=== PATIENT | male | born 1995 | race Native Hawaiian/Other Pacific Islander ===

== ENCOUNTER 2016-11-07 15:38 | Emergency (ER) | payer MEDICAID, OTHER ==
[~2016-11-07] VITALS: Ht 172.7 cm; Wt 78.3 kg
[~2016-11-07 15:38] MED LIST: ZITH250T PO
[2016-11-07 15:45] VITALS: BP 129/68; PULSE 67; RESP 18; TEMP 98.1; O2SAT 98
[2016-11-07] MEDS ORDERED: TETANUS/DIPHTHERIA TOXOID ADULT 0.5 ML VIAL IM ONE (16:00)
--- NOTE | 2016-11-07 16:04 | PD ---
HPI Chief Complaint: Laceration/Skin Injury Time Seen by Provider: 15:59 Travel History International Travel<30 days: No Contact w/Intl Traveler<30days: No Traveled to known affect area: No History of Present Illness HPI 21-year-old male presents to the emergency department for evaluation of left hand third finger abrasion. Patient states that he was hammering a nail into a wall outside when his hand slipped and he accidentally poked himself with the michelle nail in his left hand third finger. States it is a very small abrasion in that he only has a little bit of soreness in the area when he squeezes it. Denies any fever, chills, nausea, vomiting, numbness or tingling, weakness, decreased range of motion. Patient states his last tetanus vaccination was 8 years ago. No other complaints. [facility] Past Medical History Immunizations Current: Yes Social History Alcohol Use: No Tobacco Use: No Substance Use: No Allergies-Medications (Allergen,Severity, Reaction): Coded Allergies: Penicillin (Verified Allergy, Unknown, UNKNOWN, 11/07/16) Reported Meds & Prescriptions Reported Meds & Active Scripts Active Zithromax Z-Ernst (Azithromycin) 250 Mg Tab 250 Mg PO DIRECTED 5 Days 500 MG (2 TABLETS) PO ON DAY 1, THEN 250 MG (1 TABLET) PO ON DAYS 2 TO 5. Review of Systems Except as stated in HPI: all other systems reviewed are Neg Physical Exam Narrative GENERAL: Well-nourished and well-developed pleasant male patient in no acute distress who is nontoxic appearing. SKIN: Warm and dry. HEAD: Normocephalic and atraumatic. EYES: No injection, drainage, or hyphema noted. PERRLA. EOMI. ENT: No nasal drainage noted. Oropharynx is clear. NECK: Supple and the trachea is midline. CARDIOVASCULAR: Regular rate and rhythm. RESPIRATORY: Breath sounds are equal bilaterally with no accessory muscle use, wheezing, rhonchi, or crackles. EXTREMITY: Pinpoint abrasion to dorsal left hand third finger just above the PIP. Full range of motion in all joints. No joint swelling/injury. Normal opposition of thumb. Distal extremity neurovascularly intact with intact two point discrimination. NEUROLOGICAL: Awake, alert, and oriented. Normal speech and gait. Cranial nerves are grossly intact. Data Data Last Documented VS Vital Signs Date Time Temp Pulse Resp B/P Pulse Ox O2 Delivery O2 Flow Rate FiO2 11/07/16 15:45 98.1 67 18 129/68 98 MDM Medical Decision Making Medical Screen Exam Complete: Yes Emergency Medical Condition: Yes Differential Diagnosis Abrasion versus puncture wound versus contusion Narrative Course 21-year-old male presents the emergency department for evaluation of abrasion to left hand third finger that occurred when he accidentally poked himself with a michelle nail. Patient is afebrile, vital signs are stable. Full range of motion, all fingers are neurovascularly intact. No indication for imaging at this time. The patient's tetanus vaccination was updated in the ED. Discussed proper wound care care techniques. Patient is stable for discharge. Diagnosis Primary Impression: Finger abrasion Qualified Code: S60.419A - Finger abrasion, initial encounter Patient Instructions: Abrasion (ED), General Instructions Additional Instructions: Follow-up with your Primary Care Physician. Return to the ED for any acute worsening of symptoms. Med/Other Pt SpecificInfo: No Change to Meds Disposition: 01 DISCHARGE HOME Condition: Stable Miesha Zavala November 07, 2016 16:04
== END 2016-11-07 16:10 | disposition home or self-care (01) ==
LOC: PHEFT 15:38
DX: S60.413A Abrasion of left middle finger, initial encounter (principal); Z23 Encounter for immunization; W45.0XXA Nail entering through skin, initial encounter; Y93.89 Activity, other specified; Y92.89 Other specified places as the place of occurrence of the external cause
CPT/HCPCS: 90471; 90714